=== PATIENT | male | born 1985 | race Caucasian/White ===

== ENCOUNTER 2020-08-20 18:38 | Emergency (ER) | payer OTHER, SELFPAY ==
--- NOTE | ~2020-08-20 | CT_ITS ---
EXAMINATION: CT abdomen pelvis w con DATE: 08/20/2020 20:00 INDICATION: Right lower quadrant abdominal pain. History of Crohn's disease. TECHNIQUE: Computed tomography (CT) of the abdomen and pelvis was performed without intravenous contr ast. Automated exposure control and iterative reconstruction technique were employed. Exam dose: 372 .46 mGy-cm total exam DLP. COMPARISON: 07/11/2018 CT abdomen pelvis FINDINGS: The lung bases are clear of infiltrate or consolidation. Normal heart size. No pericardial or pleural effusion. The liver, gallbladder, bile ducts, spleen, pancreas, pancreatic duct, and adrenal glands are unremar kable. No renal mass lesion or scarring is evident. Prominent right extrarenal pelvis but no hydronephrosis or urinary tract calculus is noted on either side. The urinary bladder is unremarkable. Mild prostate enlargement and mild prostate calcification. Normal caliber of the abdominal aorta. No intraperitoneal or retroperitoneal or pelvic mass lesion or adenopathy. There is prominent mural thickening of the terminal ileum, with proximal distal ileum dilatation up t o 4 cm with fecal sign. There is a 6 cm skip segment with proximal short segment small bowel mural th ickening and immediately proximal to that 4 cm dilatation and small bowel fecal sign. The findings are consistent with active Crohn's disease. The sacroiliac joints appear normal. No sacroiliitis is identified. No suspicious osteolytic or osteoblastic lesions are noted. IMPRESSION: Active Crohn's disease at distal ileum and terminal ileum, with 6 cm intervening skip se gment No abscess is identified. There is minimal free fluid in the right pelvis Reviewed, dictated and finalized at [facility]. Reviewed, dictated and finalized at [facility]. IMPRESSION: Active Crohn's disease at distal ileum and terminal ileum, with 6 cm intervening skip segment No abscess is identified. There is minimal free fluid in the right pelvis
[2020-08-20 18:57] LABS: Basophils Percent Auto 0.3 % (0.2-1.2); Eosinophils Absolute Auto 0.1 K/mm3 (0-0.3); Eosinophils Percent Auto 0.8 % (0-4.4); Hematocrit 41.3 % (42.0-52.0); Hemoglobin 13.6 g/dL (14.0-18.0); Immature Granulocyte Absolute 0.02 K/mm3 (0.00-0.031); Immature Granulocyte Percent A 0.2 % (0-0.5); Lymphocytes Absolute Auto 1.62 K/mm3 (0.9-3.2); Lymphocytes Percent Auto 17.4 % (18.3-44.2); Mean Corpuscular HGB Conc 32.9 g/dl (32-36); Mean Corpuscular Hemoglobin 28.3 pg (26-34); Mean Corpuscular Volume 85.9 fl (80-100); Mean Platelet Volume 11.2 fl (7.4-10.4); Monocytes Absolute Auto 0.4 K/mm3 (0.1-0.6); Monocytes Percent Auto 4.4 % (2.6-8.5); Neutrophils Absolute Auto 7.2 K/mm3 (1.3-6.7); Neutrophils Percent Auto 76.9 % (45.5-73.1); Platelet Count Result 204 k/mm3 (150-375); Red Blood Count 4.81 M/mm3 (4.6-6.20); Red Cell Distribution Width 13.9 % (11.5-14.5); White Blood Count 9.3 K/mm3 (4.5-10.0)
[2020-08-20 18:58] VITALS: BP 106/70; PULSE 80; RESP 12; TEMP 36.7; O2SAT 99
[2020-08-20 19:09] LABS: Alanine Aminotransferase 14 U/L (4-50); Albumin Level 4.5 g/dL (3.5-5.1); Alkaline Phosphatase 68 U/L (38-126); Anion Gap 9 mmol/L (8-16); Aspartate Amino Transferase 24 U/L (17-59); Bilirubin,Total 0.6 mg/dL (0.2-1.3); Blood Urea Nitrogen 12 mg/dL (9-20); Calcium 9.4 mg/dL (8.4-10.2); Carbon Dioxide 27 mmol/L (22-30); Chloride 102 mmol/L (98-107); Estimated CRCL calculation 87 ml/min; Estimated Glomerular Filt Rate > 60; Glucose 98 mg/dL (75-110); Lipase 69 U/L (23-300); Potassium 4.2 mmol/L (3.4-5.0); Sodium 138 mmol/L (137-145)
[2020-08-20 19:15] LABS: Add Urine Microscopic? YES; Appearance Urine Clear (Clear); Bacteria Urine Trace /hpf; Bilirubin Urine Negative (Negative); Blood Urine Negative (Negative); Color Urine Yellow (Yellow); Glucose Urine UA Negative (Negative); Ketones Urine Trace mg/dL (Negative); Leukocyte Esterase Ur Negative LEU/UL (Negative); Mucus Urine Rare /lpf; Nitrate Urine Negative (Negative); Protein Urine 1+ mg/dL (Negative); RBC Urine 0-2 /hpf (0-2); Specific Grav Ur 1.024 (1.001-1.035); Squamous Epithelial Cell Urine Rare /hpf (Few); Urobilinogen Urine Negative mg/dL (<2.0); WBC Urine 0-3 /hpf
[2020-08-20] MEDS: MORPHINE SULFATE (*CRX) 4 MG/ML INJ IV PUSH (19:56)
[2020-08-20] MEDS: ONDANSETRON INJ 4 MG/2 ML VIAL IV PUSH (19:56)
--- NOTE | 2020-08-20 20:02 | ED.GENADULT ---
HPI - General Adult General Chief complaint: Abdominal Pain Stated complaint: right abd pain Time Seen by Provider: 08/20/20 19:06 History of Present Illness HPI narrative: Patient is a 35-year-old male who presents ER with right lower quadrant abdominal pain. Reports she started having some epigastric discomfort yesterday and moved down to the right lower quadrant. He does have history of Crohn's disease with history of Crohn's flares but this is feeling little bit different giving how the pain has moved locations. No diarrhea or bloody bowel movements. No nausea/vomiting/shortness of breath. Did have some sweats earlier in the day. No aggravating or alleviating factors. Related Data Allergies Allergy/AdvReac Type Severity Reaction Status Date / Time No Known Allergies Allergy Unknown Unverified 07/11/18 20:19 Review of Systems Review of Systems: All systems reviewed & are unremarkable except as noted in HPI and below Constitutional: Constitutional: Reports chills, Denies fever(s) and Reports weakness ENT: Denies nasal congestion and Denies sore throat Cardiovascular: Cardiovascular: Denies chest pain, Denies rapid heart rate and Denies radiating jaw, neck or arm pain Respiratory: Respiratory: Denies cough and Denies dyspnea Gastrointestinal: Gastrointestinal: Reports abdominal pain, Denies constipation, Denies diarrhea, Reports nausea and Denies vomiting PMFSH Past Medical History Medical History (Updated 08/20/20 @ 20:58 by Fco Guallpa MD) Crohn's disease Surgical History Surgical History (Updated 08/20/20 @ 20:05 by Fco Guallpa MD) History of colonoscopy Exam Narrative: Exam Narrative: GENERAL: Well-appearing, well-nourished, and in no acute distress. HEAD: Normocephalic, atraumatic. ENT: Mucous membranes moist. CHEST: Clear to auscultation. No respiratory distress. HEART: Regular rate and rhythm. Normal peripheral pulses. ABDOMEN: Soft, mild tenderness right lower quadrant without guarding, nondistended. EXTREMITIES: Normal range of motion. No edema. SKIN: Warm, dry, no rash. NEURO: Alert and oriented x3. PSYCH: Normal mood and affect. Course Course Emergency Course: Discussed case with Dr. Rossi who recommends patient be on a liquid diet for the next 48 hours and to return if he has vomiting. Does not recommend prednisone at this time. Discussed case with patient is verbalized understanding of treatment plan and is in agreement. Discharge home. Vital Signs Vital signs: Vital Signs Temperature 98.1 F 08/20/20 18:58 Pulse Rate 80 08/20/20 18:58 Respiratory Rate 12 08/20/20 18:58 Blood Pressure 106/70 08/20/20 18:58 Pulse Oximetry 99 08/20/20 18:58 Temperature 98.1 F 08/20/20 18:58 Pulse Rate 80 08/20/20 18:58 Respiratory Rate 12 08/20/20 18:58 Blood Pressure 106/70 08/20/20 18:58 Pulse Oximetry 99 08/20/20 18:58 Medical Decision Making Vital Signs Vital Signs: Vital Signs Temperature 98.1 F 08/20/20 18:58 Pulse Rate 80 08/20/20 18:58 Respiratory Rate 12 08/20/20 18:58 Blood Pressure 106/70 08/20/20 18:58 Pulse Oximetry 99 08/20/20 18:58 Temperature 98.1 F 08/20/20 18:58 Pulse Rate 80 08/20/20 18:58 Respiratory Rate 12 08/20/20 18:58 Blood Pressure 106/70 08/20/20 18:58 Pulse Oximetry 99 08/20/20 18:58 Lab Data Result diagrams: 08/20/20 18:52 08/20/20 18:52 Labs: Lab Results 08/20/20 08/20/20 08/20/20 Range/Units 18:52 18:52 19:02 WBC 9.3 (4.5-10.0) K/mm3 RBC 4.81 (4.6-6.20) M/mm3 Hgb 13.6 L (14.0-18.0) g/dL Hct 41.3 L (42.0-52.0) % MCV 85.9 (80-100) fl MCH 28.3 (26-34) pg MCHC 32.9 (32-36) g/dl RDW 13.9 (11.5-14.5) % Plt Count 204 (150-375) k/mm3 MPV 11.2 H (7.4-10.4) fl Immature Gran % (Auto) 0.2 (0-0.5) % Neut % (Auto) 76.9 H (45.5-73.1) % Lymph % (Auto) 17.4 L (18.3-44.2) % [place] %
[2020-08-20 21:08] VITALS: BP 110/72; PULSE 73; RESP 18; O2SAT 99
== END 2020-08-20 21:13 | disposition home or self-care (01) ==
PROVIDERS: Emergency Medicine; Emergency Provider Emergency Medicine; PCP Family Medicine
DX: K50.00 Crohn's disease of small intestine without complications (principal)
CPT/HCPCS: 36415; 74177; 80053; 81001; 83690; 85025; 96374; 96375; 99284; J2270; J2405; Q9967

== ENCOUNTER 2020-09-11 10:15 | Emergency (ER) | payer OTHER, SELFPAY ==
[2020-09-11 10:29] VITALS: BP 111/69; PULSE 75; RESP 14; TEMP 36.8; O2SAT 100
[2020-09-11 11:45] LABS: Basophils Percent Auto 0.1 % (0.2-1.2); Hematocrit 41.9 % (42.0-52.0); Hemoglobin 13.5 g/dL (14.0-18.0); Immature Granulocyte Absolute 0.05 K/mm3 (0.00-0.031); Immature Granulocyte Percent A 0.4 % (0-0.5); Lymphocytes Absolute Auto 0.48 K/mm3 (0.9-3.2); Lymphocytes Percent Auto 3.5 % (18.3-44.2); Mean Corpuscular HGB Conc 32.2 g/dl (32-36); Mean Corpuscular Hemoglobin 28.1 pg (26-34); Mean Corpuscular Volume 87.1 fl (80-100); Mean Platelet Volume 12.2 fl (7.4-10.4); Monocytes Absolute Auto 0.5 K/mm3 (0.1-0.6); Monocytes Percent Auto 3.9 % (2.6-8.5); Neutrophils Absolute Auto 12.8 K/mm3 (1.3-6.7); Neutrophils Percent Auto 92.1 % (45.5-73.1); Platelet Count Result 215 k/mm3 (150-375); Red Blood Count 4.81 M/mm3 (4.6-6.20); Red Cell Distribution Width 14.2 % (11.5-14.5); White Blood Count 13.8 K/mm3 (4.5-10.0)
[2020-09-11 11:58] LABS: Alanine Aminotransferase 17 U/L (4-50); Albumin Level 4.4 g/dL (3.5-5.1); Alkaline Phosphatase 75 U/L (38-126); Anion Gap 9 mmol/L (8-16); Aspartate Amino Transferase 26 U/L (17-59); Bilirubin,Total 0.4 mg/dL (0.2-1.3); Blood Urea Nitrogen 14 mg/dL (9-20); Calcium 8.9 mg/dL (8.4-10.2); Carbon Dioxide 25 mmol/L (22-30); Chloride 103 mmol/L (98-107); Estimated CRCL calculation 107 ml/min; Estimated Glomerular Filt Rate > 60; Glucose 122 mg/dL (75-110); Lipase 61 U/L (23-300); Potassium 4.1 mmol/L (3.4-5.0); Sodium 137 mmol/L (137-145)
[2020-09-11 12:10] VITALS: BP 121/88; PULSE 76; RESP 16; TEMP 36.6; O2SAT 89
--- NOTE | 2020-09-11 12:21 | ED.ABDPAIN ---
HPI - Abdominal Pain General Chief Complaint: Abdominal Pain Stated Complaint: ABD PAIN Time Seen by Provider: 09/11/20 12:01 Source: patient and RN notes reviewed Mode of arrival: ambulatory Limitations: no limitations History of Present Illness HPI narrative: This is a 35 year old male with history of Chrohn's disease who presents for evaluation constipation and lower abdominal pain. He states he woke up at 5 am this morning with lower abdominal cramping and the urge to defecate. He states he was unable to have a bowel movement and he continued to have pain. He tried taking a fleet and he was unable to go after 1 hour so he came to ER. Patient states he had small bowel movement at home. Once he got to ER, he was able to have large bowel movement and his abdominal pain has resolved. He reports he was told to take miralax daily for his issues with constipation but he is not taking. He states miralax makes him feel ill . MD elicited complaint: abdominal pain Pain Consistency: now resolved Quality: cramping Related Data Allergies Allergy/AdvReac Type Severity Reaction Status Date / Time No Known Allergies Allergy Unknown Unverified 07/11/18 20:19 Review of Systems Review of Systems: All systems reviewed & are unremarkable except as noted in HPI and below PMFSH Past Medical History Medical History (Updated 09/11/20 @ 12:32 by Radha Zacarias MD) Crohn's disease Surgical History Surgical History (Updated 08/20/20 @ 20:05 by Fco Guallpa MD) History of colonoscopy Social History Social History (Updated 09/11/20 @ 23:04 by Radha Zacarias MD) Smoking status: Former smoker Exam Const: General: no acute distress and alert Orientation/consciousness: patient oriented x3 Eyes: EOM: EOMs intact bilaterally Resp: Effort & Inspection: normal respiratory effort and no retractions Auscultation: clear to auscultation bilaterally Cardio: Rate: regular rate Rhythm: regular rhythm Heart sounds: no murmurs GI: GI Palp: Yes Soft to palpation, No Tenderness to palpation present (GI) and Yes Guarding due to palpation present (GI) Auscultation: normal bowel sounds Neuro: General: patient oriented x3, moves all extremities and CN's II-XI intact bilaterally Extrem: General: normal to inspection Psych: Mental Status: mental status grossly normal Affect: normal affect Course Reevaluation(s) Reevaluation #1: Patient presented with constipation . His abdominal pain resolved and he has no abdominal tenderness. I reviewed labs that show chronic leukocytosis. He does not appear to need repeat imaging at this time. Date: 09/11/20 Time: 12:28 Consultations Consultation #1: I discussed case with DR. Trinidad and he states patient can take [place] and call office tomorrow. Date: 09/11/20 Time: 12:28 Vital Signs Vital signs: Vital Signs Temperature 98.2 F 09/11/20 10:29 Pulse Rate 75 09/11/20 10:29 Respiratory Rate 14 09/11/20 10:29 Blood Pressure 111/69 09/11/20 10:29 Pulse Oximetry 100 09/11/20 10:29 Temperature 98.4 F 09/11/20 13:15 Pulse Rate 73 09/11/20 13:15 Respiratory Rate 18 09/11/20 13:15 Blood Pressure 116/79 09/11/20 13:15 Pulse Oximetry 100 09/11/20 13:15 MDM - Abdominal Pain Medical Records Attestation: I reviewed the patient's medical records. Lab Data Attestation: I reviewed the patient's lab results. Result diagrams: 09/11/20 11:00 09/11/20 11:00 Labs: Lab Results 09/11/20 09/11/20 09/11/20 Range/Units 11:00 11:00 12:14 WBC 13.8 H (4.5-10.0) K/mm3 RBC 4.81 (4.6-6.20) M/mm3 Hgb 13.5 L (14.0-18.0) g/dL Hct 41.9 L (42.0-52.0) % MCV 87.1 (80-100) fl MCH 28.1 (26-34) pg MCHC 32.2 (32-36) g/dl RDW 14.2 (11.5-14.5) % Plt Count 215 (150-375) k/mm3 MPV 12.2 H (7.4-10.4) fl Immature Gran % (Auto) 0.4 (0-0.5) % Neut % (Auto) 92.1 H (45.5-73.1) %
[2020-09-11 12:22] LABS: Add Urine Microscopic? YES; Appearance Urine Clear (Clear); Bacteria Urine Trace /hpf; Bilirubin Urine Negative (Negative); Blood Urine Negative (Negative); Color Urine Yellow (Yellow); Glucose Urine UA Negative (Negative); Ketones Urine Trace mg/dL (Negative); Leukocyte Esterase Ur Negative LEU/UL (Negative); Mucus Urine Rare /lpf; Nitrate Urine Negative (Negative); Protein Urine Negative (Negative); RBC Urine 0-2 /hpf (0-2); Specific Grav Ur 1.028 (1.001-1.035); Squamous Epithelial Cell Urine Rare /hpf (Few); Urobilinogen Urine Negative mg/dL (<2.0); WBC Urine 0-3 /hpf
--- NOTE | 2020-09-11 13:00 | PC.NURSE ---
Patient is still in rest room at this time.
--- NOTE | 2020-09-11 13:07 | PC.NURSE ---
Patient in bathroom at this time.
[2020-09-11 13:15] VITALS: BP 116/79; PULSE 73; RESP 18; TEMP 36.9; O2SAT 100
== END 2020-09-11 13:15 | disposition home or self-care (01) ==
PROVIDERS: Emergency Medicine; Emergency Provider General Practice; PCP Family Medicine
DX: K50.90 Crohn's disease, unspecified, without complications (principal); K59.00 Constipation, unspecified; Z87.891 Personal history of nicotine dependence
CPT/HCPCS: 36415; 80053; 81001; 83690; 85025; 99283

== ENCOUNTER 2020-09-30 09:07 | Outpatient (CLI) | payer OTHER, SELFPAY ==
--- NOTE | ~2020-09-30 | CT_ITS ---
EXAMINATION: CT abdomen pelvis w con DATE: 09/30/2020 09:39 INDICATION: Crohn's disease presenting with lower abdominal pain and constipation TECHNIQUE: Computed tomography (CT) of the abdomen and pelvis was performed with 100 mL Omnipaque-350 intravenous contrast. Automated exposure control and iterative reconstruction technique were employe d. The dose-length product was 332.88 mGy-cm. COMPARISON: 08/20/2020 FINDINGS: Lung bases are clear. Heart size is normal. No pericardial or pleural effusion. Liver, gallbladder, s pleen, pancreas, bilateral adrenal glands and kidneys are normal. There is prominent edematous wall t hickening in the distalmost 30 cm of the ileum consistent with given history of Crohn's disease. No b owel obstruction. The appendix is not visualized. No pericecal inflammatory change to suggest acute a ppendicitis. No pneumatosis or free intraperitoneal gas. No abscess or free intraperitoneal fluid. P artially decompressed bladder is unremarkable. No pathologically enlarged abdominal or pelvic lymphad enopathy. Mild lumbar dextrocurvature. Bones are otherwise unremarkable. IMPRESSION: 1. Edematous wall thickening along the distalmost 40 cm of the ileum consistent with likely reactive Crohn's flare. Reviewed, dictated and finalized at [facility].
== END 2020-09-30 09:08 | disposition home or self-care (01) ==
LOC: ANHIMG 09:08
PROVIDERS: PCP Family Medicine; Visit Provider Internal Medicine Gastroenterology
DX: K50.818 Crohn's disease of both small and large intestine with other complication (principal)
CPT/HCPCS: 74177; Q9967

== ENCOUNTER 2022-01-17 14:06 | Outpatient (CLI) | payer OTHER, SELFPAY ==
--- NOTE | ~2022-01-17 | XR_ITS ---
XR chest 2V DATE: 01/17/2022 14:24 INDICATION: Long-term drug therapy for Crohn's disease of small and large intestine TECHNIQUE: PA and lateral views COMPARISON: None FINDINGS: Normal heart size. No hilar or mediastinal enlargement. No pulmonary infiltrate or consolid ation, pleural effusion or pulmonary vascular congestion or pneumothorax. IMPRESSION: No active cardiopulmonary disease Reviewed, dictated and finalized at [facility]. IZER
== END 2022-01-17 14:07 | disposition home or self-care (01) ==
PROVIDERS: PCP Family Medicine; Visit Provider Internal Medicine Gastroenterology
DX: K50.818 Crohn's disease of both small and large intestine with other complication (principal); Z79.899 Other long term (current) drug therapy
CPT/HCPCS: 71046

== ENCOUNTER 2022-02-06 10:31 | Outpatient (CLI) | payer OTHER, SELFPAY ==
--- NOTE | ~2022-02-06 | CT_ITS ---
EXAMINATION: CT abdomen pelvis w con DATE: 02/06/2022 10:50 INDICATION: Chronic dull abdominal pain, more severe postprandially. History of Crohn's disease of sm all and large intestine. TECHNIQUE: Computed tomography (CT) of the abdomen and pelvis was performed with 100 CC Omnipaque 350 intravenous contrast. Automated exposure control and iterative reconstruction technique were employe d. Exam dose: 374.80 mGy-cm total exam DLP. COMPARISON: 09/30/2020 CT abdomen pelvis FINDINGS: The lung bases are clear. Normal heart size. No pericardial or pleural effusion. The liver, gallbladder, bile ducts, pancreatic duct, pancreas, spleen, adrenal glands and kidneys are normal. Normal caliber of the abdominal aorta. No intraperitoneal or retroperitoneal or pelvic mass lesion or adenopathy or ascites is noted. Mild prostate enlargement and calcification. There is diffuse thickening of the urinary bladder wall which may be due to underdistention; infection is not excluded. There is thickening of the wall of a segment of small bowel the lateral left mid to upper abdomen. Th ere is a long segment of the distal and terminal ileum with prominent wall thickening, luminal narrow ing and adjacent mild fluid and fat stranding. There are shotty mesenteric lymph nodes, most prominen t in the right lower quadrant. Included skeletal structures including sacroiliac joints are unremarkable. IMPRESSION: Active Crohn's disease with skip segments including jejunum and distal/terminal ileum, w ith prominent thickening of the distal small bowel wall and adjacent inflammation/phlegmon Reviewed, dictated and finalized at [facility]. Reviewed, dictated and finalized at [facility]. [employer] IMPRESSION: Active Crohn's disease with skip segments including jejunum and di stal/terminal ileum, with prominent thickening of the distal small bowel wall a nd adjacent inflammation/phlegmon
== END 2022-02-06 10:32 | disposition home or self-care (01) ==
PROVIDERS: PCP Family Medicine; Visit Provider Internal Medicine Gastroenterology
DX: K50.818 Crohn's disease of both small and large intestine with other complication (principal)
CPT/HCPCS: 74177; Q9967

== ENCOUNTER 2022-05-06 00:15 | Inpatient (IN) | payer OTHER, SELFPAY ==
[2022-05-06] VITALS (16 sets, daily range): BP systolic 101–138; BP diastolic 59–86; PULSE 75–110; RESP 12–26; TEMP 36.2–37.3; O2SAT 96–100; BMI 29.0
--- NOTE | ~2022-05-06 | CT_ITS ---
EXAMINATION: CT abdomen pelvis w con DATE: 05/06/2022 03:49 INDICATION: Low and mid abdominal pain. Nausea. Constipation. TECHNIQUE: Computed tomography (CT) of the abdomen and pelvis was performed with 100 mL Omnipaque 350 intravenous contrast. Automated exposure control and iterative reconstruction technique were employe d. The dose-length product was 563.96 mGy-cm. COMPARISON: CT abdomen and pelvis 02/06/2022 FINDINGS: The visualized portions of the lung bases demonstrate mild atelectasis. No pleural effusion . The heart size is normal. No pericardial effusion. The liver, gallbladder, spleen, pancreas, adrena l glands, and kidneys are normal. There are no dilated loops of bowel. The appendix is not visualized . There is wall thickening of the terminal ileum, cecum, and adjacent sigmoid colon. There are fistul as between the terminal ileum, cecum, and sigmoid colon. There is fat stranding around these areas. T here is mild ileocolic lymphadenopathy, likely reactive. There is no free intraperitoneal fluid. Ther e is mild thoracic spondylosis. IMPRESSION: 1. Wall thickening and inflammation of cecum, terminal ileum, and sigmoid colon again seen with chron ic fistulas between these areas, consistent with Crohn's disease. 2. Mild ileocolic lymphadenopathy, likely reactive. Reviewed, dictated and finalized at location A. TECHNICIAN IMPRESSION: 1. Wall thickening and inflammation of cecum, terminal ileum, and sigmoid colon again seen with chronic fistulas between these areas, consistent with Crohn's disease. 2. Mild ileocolic lymphadenopathy, likely reactive.
[2022-05-06] MEDS: SODIUM CHLORIDE 0.9% IV 1,000 ML 999 ML IV CONT (02:35)
[2022-05-06] MEDS: MORPHINE SULFATE (*CRX) 4 MG/ML INJ IV PUSH ×4 (02:35→20:04)
[2022-05-06] MEDS: ONDANSETRON INJ 4 MG/2 ML VIAL IV PUSH ×4 (02:35→20:07)
[2022-05-06 02:45] LABS: Basophils Percent Auto 0.1 % (0.2-1.2); Eosinophils Percent Auto 0.1 % (0-4.4); Hematocrit 39.1 % (42.0-52.0); Hemoglobin 12.7 g/dL (14.0-18.0); Immature Granulocyte Absolute 0.06 K/mm3 (0.00-0.031); Immature Granulocyte Percent A 0.4 % (0-0.5); Lymphocytes Absolute Auto 0.97 K/mm3 (0.9-3.2); Lymphocytes Percent Auto 5.9 % (18.3-44.2); Mean Corpuscular HGB Conc 32.5 g/dl (32-36); Mean Corpuscular Hemoglobin 27.1 pg (26-34); Mean Corpuscular Volume 83.5 fl (80-100); Mean Platelet Volume 11.1 fl (7.4-10.4); Monocytes Absolute Auto 0.7 K/mm3 (0.1-0.6); Monocytes Percent Auto 4.4 % (2.6-8.5); Neutrophils Absolute Auto 14.7 K/mm3 (1.3-6.7); Neutrophils Percent Auto 89.1 % (45.5-73.1); Platelet Count Result 252 k/mm3 (150-375); Red Blood Count 4.68 M/mm3 (4.6-6.20); Red Cell Distribution Width 13.8 % (11.5-14.5); White Blood Count 16.5 K/mm3 (4.5-10.0)
[2022-05-06 02:55] LABS: Alanine Aminotransferase 15 U/L (6-50); Albumin Level 4.2 g/dL (3.5-5.1); Alkaline Phosphatase 58 U/L (38-126); Anion Gap 8 mmol/L (8-16); Aspartate Amino Transferase 16 U/L (17-59); Bilirubin,Total 0.5 mg/dL (0.2-1.3); Blood Urea Nitrogen 9 mg/dL (9-20); Calcium 8.6 mg/dL (8.4-10.2); Carbon Dioxide 28 mmol/L (22-30); Chloride 97 mmol/L (98-107); Estimated CRCL calculation 134 ml/min; Estimated Glomerular Filt Rate > 60; Glucose 119 mg/dL (65-110); Lipase 52 U/L (23-300); Potassium 3.1 mmol/L (3.4-5.0); Sodium 133 mmol/L (137-145)
--- NOTE | 2022-05-06 02:57 | ED.GENADULT ---
HPI - General Adult General Chief complaint: Abdominal Pain Stated complaint: abd pain Time Seen by Provider: 05/06/22 01:47 History of Present Illness HPI narrative: Patient 36-year-old gentleman who presents the emergency department with chief complaint of abdominal pain. Patient reports that he has history of Crohn's disease and is currently undergoing infusions and sees a GI doctor at [place] Dr. Trinidad. The patient reports that for some time he has been having abdominal discomfort and reports that over the last several days it is gotten worse. Patient reports he has not had any diarrhea in fact has had constipation the patient reports no significant vomiting or denies fever. Patient reports no prior intra-abdominal surgeries Related Data Allergies Allergy/AdvReac Type Severity Reaction Status Date / Time No Known Allergies Allergy Unknown Verified 05/06/22 00:15 Review of Systems Review of Systems: A 10 system review of systems was completed on the patient and is negative except for what is stated in the HPI. Nursing and ancillary documentation was reviewed. [facility] Past Medical History Medical History Crohn's disease Surgical History Surgical History History of colonoscopy Social History Social History Smoking status: Former smoker Exam Narrative: GENERAL: Well-appearing, well-nourished, and in no acute distress. HEAD: Normocephalic, atraumatic. EYES: PERRLA and EOMI. ENT: Nares clear, no rhinorrhea or epistaxis. Mucous membranes moist. NECK: Supple. CHEST: Clear to auscultation. No respiratory distress. HEART: Regular rate and rhythm. No murmur heard. Normal peripheral pulses. ABDOMEN: Soft, diffuse tenderness to palpation, nondistended, normal active bowel sounds. EXTREMITIES: Normal range of motion. No edema. SKIN: Warm, dry, no rash. NEURO: No focal deficits. Alert and oriented x3. PSYCH: Normal mood and affect. Course Vital Signs Vital signs: Vital Signs Temperature 36.2 C L 05/06/22 00:27 Pulse Rate 93 05/06/22 00:27 Respiratory Rate 20 05/06/22 00:27 Blood Pressure 116/75 05/06/22 00:27 Pulse Oximetry 100 05/06/22 00:27 Oxygen Delivery Room Air 05/06/22 00:27 Temperature 36.2 C L 05/06/22 00:27 Pulse Rate 87 05/06/22 06:00 Respiratory Rate 17 05/06/22 06:00 Blood Pressure 103/66 05/06/22 06:00 Pulse Oximetry 100 05/06/22 06:00 Oxygen Delivery Room Air 05/06/22 00:27 Medical Decision Making MDM Narrative Medical decision making narrative: Differential diagnosis includes bowel obstruction, Crohn's exacerbation, colitis, ileus, appendicitis, intra-abdominal abscess. Laboratory studies have been ordered CT scan has been ordered the patient received IV fluids and pain control and antiemetics. Laboratory studies showed a white blood cell count of 16.5 lactic acid was 1.0 urinalysis showed 4+ ketones Patient received IV fluids antiemetics and pain control. CT scan of the abdomen pelvis showed evidence of edema in the greater wall of the terminal ileum consistent with Crohn's and a 1.8 cm triangular fluid collection adjacent to the wall of the distal ileum concerning for small abscess that is too small for drainage. Initial discussion with the hospitalist recommended possible transfer to allow for continuation of care. The case was discussed with the patient's primary GI doctor who recommended IV antibiotics at our facility and standard therapy. Case was discussed further with the hospitalist who excepted the patient. Vital Signs Vital Signs: Vital Signs Temperature 36.2 C L 05/06/22 00:27 Pulse Rate 93 05/06/22 00:27 Respiratory Rate 20 05/06/22 00:27 Blood Pressure 116/75 05/06/22 00:27 Pulse Oximetry 100 05/06/22 00:27 Oxygen Delive
[2022-05-06 04:15] LABS: Appearance Urine Clear (Clear); Bilirubin Urine 1+ (Negative); Blood Urine Negative (Negative); Color Urine Yellow (Yellow); Glucose Urine UA Negative (Negative); Ketones Urine 4+ mg/dL (Negative); Leukocyte Esterase Ur Negative LEU/UL (Negative); Nitrate Urine Negative (Negative); Protein Urine Negative (Negative); Urobilinogen Urine 0.2 mg/dL (<2.0); pH Urine 5.5 (5.0-9.0)
[2022-05-06 04:18] LABS: Bacteria Urine Trace /hpf; Mucus Urine Rare /lpf; RBC Urine 0-2 /hpf (0-2); WBC Urine 0-3 /hpf
[2022-05-06 04:28] LABS: Add Urine Microscopic? YES
[2022-05-06] MEDS: SODIUM CHLORIDE 0.9% IV 1,000 ML 125 ML IV CONT ×2 (06:06→20:04)
--- NOTE | 2022-05-06 08:20 | PC.NURSE ---
This patient, Varghese Reinoso III, was admitted to [facility] Surg Room 310-01. Patient/family oriented to hospital policies and general routines including ID bracelet, bed and alarms, visiting hours, pain management, procedures, bathroom and other care routines, personal items, smoking policy, room service/diet, and visiting hours. Information on how to activate the Rapid Response Team has been discussed. Patient/Family are encouraged to report perceived risks to care and to ask questions if they do not understand what they are told or what they should do.
--- NOTE | 2022-05-06 09:05 | WPDGICN ---
Assessment and Plan Assessment and plan (1) Exacerbation of Crohn's disease: Code(s): K50.90 - Crohn's disease, unspecified, without complications Status: Acute Assessment and Plan: although he felt better after his 1st injection with Stelara, he began having symptoms again last week just couple days prior to his 2nd dose and those symptoms have worsened over the past [address] scan in February did show areas of Crohn's disease with narrowing in the jejunum as well as terminal ileum. Now there is an abscess as well. Recurrent CT reading is: 1. Wall thickening and inflammation of cecum, terminal ileum, and sigmoid colon again seen with chronic fistulas between these areas, consistent with Crohn's disease. 2. Mild ileocolic lymphadenopathy, likely reactive. I told that this is not indicated failure of therapy but that he was probably starting to develop an abscess before this based on the phlegmon that was noted in February. Because he has fistulizing Crohn's disease, his current therapy we is appropriate. He will need to continue to follow-up closely with his filter press tender. (2) Intra-abdominal abscess: Code(s): K65.1 - Peritoneal abscess Status: Acute Assessment and Plan: He has been started on piperacillin. I told that he would probably go home on antibiotics. I mentioned metronidazole and he recalls having been on that at some point in the past. Plan Start clear liquid diet antibiotics for Crohn's abscess tract calprotectin level as a 'baseline' and as a parameter for his filter press tender to follow. GI Consult Note Consult date/time: 05/06/22 09:05 HPI: Varghese Reinoso III is a 36 year old male with 15 year history of Crohn's disease. He came to the emergency room yesterday evening because of increasing abdominal pain. He was starting to feel uncomfortable a little over week ago, 2 or 3 days before his 2nd treatment with Stelara. He had been in the past on other medications including Humira. The Humira had worked for him when he was in [place]. He moved up here and when he restarted Humira,it did not seem to be helping. He did feel significantly better after his 1st dose of Stelara about 2 months ago. After having his 2nd treatment 1 week ago the pain that he had started to experience actually get worse to the point that is continuous now for the past 3 days. It makes him not want to eat. He is not vomiting. He has not had a fever but does not feel like eating because seems to make his symptoms worse when he does eat. He has lost about 5 lb in the last 2 months. He has not had significant abdominal distention. He has not had a fever. He does have loose stools. Usually has 1st bowel movement is formed but followed by loose stool. A CT scan was done in February prior to starting this medication and it showed active Crohn's disease with skip segments in the jejunum and terminal ileum with thickening of the distal small bowel and adjacent inflammation/ phlegmon . Last night CT scan shows actually a small abscess in that area. He has been started on piperacillin. Review of Systems Review of Systems: All systems reviewed & are unremarkable except as noted in HPI and below PMFSH Past Medical History Medical History Crohn's disease Surgical History Surgical History History of colonoscopy Family History Family History Unknown Hypertension Grandparent Hx of CABG Social History Social History Years smoked: 11 Smoking status: Former smoker Alcohol intake: never Substance use: never Lack of Transportation: No Lack of Food: Never True Current Housing: I Have Housing Concerned About Future Housing: No Difficulty Paying Gas/Electric
--- NOTE | 2022-05-06 10:30 | PM.IMHP ---
H&P: HPI History of Present Illness Date/Time: 05/06/22 1030 Chief Complaint: Severe abdominal pain Narrative: Patient is a 36-year-old male with past medical history Crohn's disease who presented to the ED with complaints of abdominal pain. Patient stated that he had severe abdominal pain for last 3 days in which he rated a 10/10. He stated that his pain started the pelvic area and has been radiating up to the epigastric area. He has been experiencing some nausea and constipation. He also has been getting treatment with Stelara and his last dose was last week. He denies any chest pain, shortness a breath, vomiting, weakness, lightheadedness, dizziness, sweats, fevers, chills, fatigue. He denies any treatment at home. He was stating that he sometimes has a hard time starting a stream however when he does it fully empties. GI has been consulted. WBC slightly elevated at 16.5. Patient does see Dr. Trinidad outpatient. CT of the abdomen and pelvis does show wall thickening and inflammation of the cecum, terminal ileum, and sigmoid colon with skip lesions. Currently patient is stable. He is having a little bit of decreased appetite due to the pain and nausea. He did state that the pain medicines are helping him. Patient has also been started on Zosyn. Patient is being admitted to the hospitalist services and patient will require to greater than 2 midnights for full workup in recovery. Review of Systems Review of Systems: All systems reviewed & are unremarkable except as noted in HPI and below PMFSH Past Medical History Medical History Crohn's disease Surgical History Surgical History History of colonoscopy Family History Family History Unknown Hypertension Grandparent Hx of CABG Mother Hypertension Father Hypertension Social History Social History (Updated 05/06/22 @ 13:21 by CHANDRA Multani) Social History: Patient is currently unemployed in the with his mom and dad. Patient does have 2 kids and they do have a dog. Patient currently lacks is dad Varghese to be his surrogate. Patient wishes to be a full code at this time Smoking packs per day: 1 Smoking cigarettes per day: 20.0 Years smoked: 8 Smoking pack-years: 8.00 Smoking status: Former smoker Additional smoking assessment comments: Quit about 3 years ago Alcohol intake: never Substance use: never Lack of Transportation: No Lack of Food: Never True Current Housing: I Have Housing Concerned About Future Housing: No Difficulty Paying Gas/Electric Bills: No Difficulty Paying for Meds: No Currently Unemployed: No Education: High School Diploma/GED Difficulty w/ Childcare or Family Care: No Living arrangements: with family Additional living arrangements comments: Mother and Father Occupation/Education: unemployed Gender identity (if verbalized by the patient): Male Sexual Orientation (if Verbalized by the Patient): Straight or Heterosexual Spiritual care concerns: No Agree to blood products: Yes Meds Home Medications and Allergies Home Medications Medication Instructions Recorded Confirmed Type ustekinumab 45 mg/0.5 mL See Rx Instructions .Route .COMPLEX 05/06/22 05/06/22 History subcutaneous solution (Stelara) Allergies Allergy/AdvReac Type Severity Reaction Status Date / Time No Known Allergies Allergy Unknown Verified 05/06/22 00:15 Vital Signs Vital Signs - 24 hr 05/06/22 00:27 05/06/22 01:36 05/06/22 02:46 Temperature 97.1 F L Pulse Rate 93 80 91 Respiratory Rate 20 17 23 H Blood Pressure 116/75 123/82 106/69 Pulse Oximetry 100 100 96 Oxygen Delivery Room Air 05/06/22 05:45 05/06/22 05:43 05/06/22 03:30 Temperature Pulse Rate 91 90 79 Respiratory Rate 12 14 16 Blood Pressure 113/69
[2022-05-06] MEDS: POTASSIUM CHLORIDE INJ 40 MEQ in SODIUM CHLORIDE 0.9% IV 500 ML 130 MEQ IVPB (13:44)
[2022-05-06] MEDS: HYDROcodone/acetaminophen (*CRX) 5-325 MG TABLET 1 TAB PO (20:04)
[2022-05-07] MEDS: SODIUM CHLORIDE 0.9% IV 1,000 ML 125 ML IV CONT ×3 (03:41→23:56)
[2022-05-07] MEDS: HYDROcodone/acetaminophen (*CRX) 5-325 MG TABLET 1 TAB PO (03:41)
[2022-05-07 05:21] VITALS: BP 99/61; PULSE 86; RESP 20; TEMP 36.6; O2SAT 100
[2022-05-07 07:18] LABS: Basophils Percent Auto 0.2 % (0.2-1.2); Eosinophils Absolute Auto 0.1 K/mm3 (0-0.3); Eosinophils Percent Auto 0.5 % (0-4.4); Hematocrit 37.1 % (42.0-52.0); Hemoglobin 11.7 g/dL (14.0-18.0); Immature Granulocyte Absolute 0.02 K/mm3 (0.00-0.031); Immature Granulocyte Percent A 0.2 % (0-0.5); Lymphocytes Absolute Auto 1.06 K/mm3 (0.9-3.2); Mean Corpuscular HGB Conc 31.5 g/dl (32-36); Mean Corpuscular Hemoglobin 26.6 pg (26-34); Mean Corpuscular Volume 84.3 fl (80-100); Mean Platelet Volume 11.2 fl (7.4-10.4); Monocytes Absolute Auto 0.9 K/mm3 (0.1-0.6); Monocytes Percent Auto 8.4 % (2.6-8.5); Neutrophils Absolute Auto 8.6 K/mm3 (1.3-6.7); Neutrophils Percent Auto 80.7 % (45.5-73.1); Platelet Count Result 230 k/mm3 (150-375); Red Cell Distribution Width 13.8 % (11.5-14.5); White Blood Count 10.6 K/mm3 (4.5-10.0)
[2022-05-07 07:40] LABS: Alanine Aminotransferase 16 U/L (6-50); Albumin Level 3.3 g/dL (3.5-5.1); Alkaline Phosphatase 47 U/L (38-126); Anion Gap 5 mmol/L (8-16); Aspartate Amino Transferase 17 U/L (17-59); Bilirubin,Total 0.8 mg/dL (0.2-1.3); Blood Urea Nitrogen 3 mg/dL (9-20); Calcium 7.8 mg/dL (8.4-10.2); Carbon Dioxide 28 mmol/L (22-30); Chloride 105 mmol/L (98-107); Estimated CRCL calculation 106 ml/min; Estimated Glomerular Filt Rate > 60; Glucose 102 mg/dL (65-110); Magnesium 1.8 mg/dL (1.6-2.3); Potassium 3.9 mmol/L (3.4-5.0); Sodium 138 mmol/L (137-145)
[2022-05-07] MEDS: polyethylene glycoL 3350 17 GM POWD.PACK PO (08:02)
[2022-05-07] MEDS: methylPREDNISolone SOD SUCC 40 MG VIAL IV PUSH ×4 (08:02→23:56)
[2022-05-07 14:00] VITALS: BP 102/69; PULSE 57; RESP 14; TEMP 36.2; O2SAT 95
--- NOTE | 2022-05-07 14:54 | WPDGIPROGNO ---
Progress Note: A&P Assessment and Plan (1) Exacerbation of Crohn's disease: Code(s): K50.90 - Crohn's disease, unspecified, without complications Status: Acute Assessment and Plan: although he felt better after his 1st injection with Stelara, he began having symptoms again last week just couple days prior to his 2nd dose and those symptoms have worsened over the past [address] scan in February did show areas of Crohn's disease with narrowing in the jejunum as well as terminal ileum. Now there is an abscess as well. Recurrent CT reading is: 1. Wall thickening and inflammation of cecum, terminal ileum, and sigmoid colon again seen with chronic fistulas between these areas, consistent with Crohn's disease. 2. Mild ileocolic lymphadenopathy, likely reactive. I told that this is not indicated failure of therapy but that he was probably starting to develop an abscess before this based on the phlegmon that was noted in February. Because he has fistulizing Crohn's disease, his current therapy we is appropriate. He will need to continue to follow-up closely with his electric hoist operator. I am going to start him on intravenous steroids to help reduce inflammation. (2) Intra-abdominal abscess: Code(s): K65.1 - Peritoneal abscess Status: Acute Assessment and Plan: He has been started on piperacillin. I told that he would probably go home on antibiotics. I mentioned metronidazole and he recalls having been on that at some point in the past. I explained that he will PN intravenous antibiotics while he is here and then probably will go home on oral antibiotics for some period of time. (3) Abdominal pain: Code(s): R10.9 - Unspecified abdominal pain Status: Acute Assessment and Plan: he had a little more pain when he tried taking clear liquids. He states that he is willing to try some full liquids although he does not do well with lactulose. He states he is not particularly hungry. He is not taking morphine because it seems to upset his stomach but he is trying to get by with oral medication, hydrocodone Plan Start clear liquid diet; try advancing to full liquids antibiotics for Crohn's abscess tract calprotectin level as a 'baseline' and as a parameter for his electric hoist operator to follow. He has not had a stool since he arrived in feels that he might be getting constipated . I told I will give him some . MiraLax Subjective Date/time seen: 05/07/22 14:54 he does not feel any better. He states that he is not hungry in fact he thinks his abdominal pain got worse when he took some clear liquids. He also gets nauseated with narcotics therefore has given up on morphine and would rather try hydrocodone for his pain. he feels constipated. He has not had a bowel movement since he got here, although he really has not had anything to eat. He states that at home he often feels constipated. When he has a bowel movement will begin As a solid or hard stool and is followed by a great deal of liquid stool. Exam Const: General: no acute distress, alert and awake Nutritional Appearance: well nourished Cardio: Rate: regular rate Rhythm: regular rhythm GI: Inspection: normal to inspection GI Palp: Yes Tenderness to palpation present (GI) (Left and right lower quadrants), Yes No hepatosplenomegaly present, No Palpable mass present and No Ascites present Auscultation: normal bowel sounds Skin: General skin exam: normal color and no rashes or lesions noted Objective Data Vital Signs Vital Signs: Vital Signs - 24 hr 05/06/22 21:10 05/06/22 20:00 05/07/22 05:21 Temperature 36.9 C 36.6 C Pulse Rate 75 86 Respiratory Rate 20 20 Blood Pressure 106/62 99/61 L Pulse Oximetry 98 100 Oxygen Delivery Room Air Intake/Output Intake/Output: Intake & Output 05/04/22 05/05/22 05/06/22 05/07/22 23:59 23:59 23:59 23:59 Intake Total 3110 2626 Output Total 679 200
--- NOTE | 2022-05-07 16:34 | PM.IMPN ---
Progress Note: A&P Assessment and Plan (1) Exacerbation of Crohn's disease: Code(s): K50.90 - Crohn's disease, unspecified, without complications Status: Acute Assessment and Plan: patient presented with worsened abdominal pain ongoing for about 1 week. patient had recently been started on Stelara and symptom onset occurred 2-3 days before he was due for his 2nd treatment CT of the abdomen/ pelvis showed wall thickening and inflammation of the cecum, terminal ileum, and sigmoid colon with chronic fistulas between these areas consistent with Crohn's disease appreciate gastroenterology consultation continue with IV steroids full liquid diet will decrease IV fluids as patient has been appropriately hydrated supportive care. Analgesics and antiemetics available as needed (2) Intra-abdominal abscess: Code(s): K65.1 - Peritoneal abscess Status: Acute Assessment and Plan: chronic fistulas noted on CT with fat stranding continue IV Zosyn plan for discharge with p.o. antibiotics continue to monitor (3) Hypokalemia: Code(s): E87.6 - Hypokalemia Status: Acute Assessment and Plan: potassium is 3.9 today continue to monitor labs Subjective Date/time seen: 05/07/22 16:34 Interval history: date of service: 05/07/2022 Varghese Colin is a 36-year-old male with a history of Crohn's disease who is seen in follow-up for Crohn's flare. Patient reports he is doing better today. He rates his abdominal pain is 2/10. He had a bowel movement yesterday but feels somewhat constipated today, complaining of bloating and gassiness. He is tolerating clear liquid diet. He has no episodes of nausea or vomiting. Ambulating without difficulty, no dizziness, or lightheadedness. Denies shortness of breath, cough, chest pain. Review of Systems Review of Systems: All systems reviewed & are unremarkable except as noted in HPI and below Exam Narrative: General: thin, well-appearing 36-year-old male, sitting up in bed, comfortable, NARD Neuro: awake, alert and oriented x4, speech clear, no focal neuro deficits noted HEENMT: normocephalic, atraumatic, EOMI, sclerae anicteric, moist oral mucosa Respiratory: clear to auscultation bilaterally, nonlabored breathing Cardio: regular rate, regular rhythm with S1-S2 Abdomen: nondistended, normoactive bowel sounds, soft, slightly tender to palpation periumbilical region Extremities: no edema, erythema, or tenderness to palpation, DP pulses 2+ bilaterally Skin: no rashes or lesions, warm and dry Psych: appropriate mood and affect, judgment and insight intact Objective Data Vital Signs Vital Signs: Vital Signs - 24 hr 05/06/22 21:10 05/06/22 20:00 05/07/22 05:21 Temperature 98.5 F 97.9 F Pulse Rate 75 86 Respiratory Rate 20 20 Blood Pressure 106/62 99/61 L Pulse Oximetry 98 100 Oxygen Delivery Room Air 05/07/22 14:00 Temperature 97.2 F L Pulse Rate 57 L Respiratory Rate 14 Blood Pressure 102/69 Pulse Oximetry 95 Oxygen Delivery Intake/Output Intake/Output: Intake & Output 05/04/22 05/05/22 05/06/22 05/07/22 23:59 23:59 23:59 23:59 Intake Total 3110 2626 Output Total 675 200 Balance 2435 2426 Meds/Results Medications: Active Medications Generic Name Dose Route Start Last Admin Trade Name Freq PRN Reason Stop Dose Admin Hydrocodone Bitart/Acetaminophen 1 tab 05/06/22 13:25 05/07/22 03:41 Hydrocodone/Acetaminophen (*Crx) 5-325 Mg Tablet PO 1 tab Q4H PRN Administration Pain Rated 4-6 Piperacillin/Tazobactam/Dextrose 3.375 gm in 50 mls @ 100 mls/hr 05/06/22 12:00 05/07/22 11:35 Zosyn 3.375 Gm/D5w 50ml Pm IVPB Infused Q6H SONI Infusion Sodium Chloride 1,000 mls @ 125 mls/hr 05/06/22 05:55 05/07/22 14:10 Normal Saline Iv IV CONT 125 mls/hr .Q8H SONI Administration Methylprednisolone Sodium Succinate 40 mg 05/07/22 07:30 03
[2022-05-07 20:00] VITALS: PULSE 57; RESP 14; O2SAT 95
[2022-05-07 22:35] VITALS: BP 118/86; PULSE 59; RESP 18; TEMP 36.1; O2SAT 96
[2022-05-08 06:00] VITALS: BP 115/78; PULSE 58; RESP 20; TEMP 36.3; O2SAT 98
[2022-05-08] MEDS: methylPREDNISolone SOD SUCC 40 MG VIAL IV PUSH ×3 (06:13→17:03)
[2022-05-08 06:15] LABS: Anion Gap 5 mmol/L (8-16); Blood Urea Nitrogen 6 mg/dL (9-20); Calcium 8.6 mg/dL (8.4-10.2); Carbon Dioxide 28 mmol/L (22-30); Chloride 105 mmol/L (98-107); Estimated CRCL calculation 138 ml/min; Estimated Glomerular Filt Rate > 60; Glucose 143 mg/dL (65-110); Potassium 4.1 mmol/L (3.4-5.0); Sodium 138 mmol/L (137-145)
[2022-05-08 06:16] LABS: Hematocrit 37.2 % (42.0-52.0); Mean Corpuscular HGB Conc 32.3 g/dl (32-36); Mean Corpuscular Hemoglobin 27.2 pg (26-34); Mean Corpuscular Volume 84.4 fl (80-100); Mean Platelet Volume 11.6 fl (7.4-10.4); Platelet Count Result 247 k/mm3 (150-375); Red Blood Count 4.41 M/mm3 (4.6-6.20); Red Cell Distribution Width 13.6 % (11.5-14.5); White Blood Count 10.2 K/mm3 (4.5-10.0)
--- NOTE | 2022-05-08 07:11 | WPDGIPROGNO ---
Progress Note: A&P Assessment and Plan (1) Exacerbation of Crohn's disease: Code(s): K50.90 - Crohn's disease, unspecified, without complications Status: Acute Assessment and Plan: although he felt better after his 1st injection with Stelara, he began having symptoms again last week just couple days prior to his 2nd dose and those symptoms have worsened over the past [address] scan in February did show areas of Crohn's disease with narrowing in the jejunum as well as terminal ileum. Now there is an abscess as well. Recurrent CT reading is: 1. Wall thickening and inflammation of cecum, terminal ileum, and sigmoid colon again seen with chronic fistulas between these areas, consistent with Crohn's disease. 2. Mild ileocolic lymphadenopathy, likely reactive. I told that this is not indicated failure of therapy but that he was probably starting to develop an abscess before this based on the phlegmon that was noted in February. Because he has fistulizing Crohn's disease, his current therapy we is appropriate. He will need to continue to follow-up closely with his lead producer. I am going to start him on intravenous steroids to help reduce inflammation. 05/08/2022 feels somewhat better today. He unfortunately only got clear liquids yesterday and therefore we are not sure how he will tolerate regular food. I will remind dietary that he is supposed to have full liquids. (2) Intra-abdominal abscess: Code(s): K65.1 - Peritoneal abscess Status: Acute Assessment and Plan: He has been started on piperacillin. I told that he would probably go home on antibiotics. I mentioned metronidazole and he recalls having been on that at some point in the past. I explained that he will PN intravenous antibiotics while he is here and then probably will go home on oral antibiotics for some period of time. White blood count has come down 10,200. calprotectin level has not yet been obtained. (3) Abdominal pain: Code(s): R10.9 - Unspecified abdominal pain Status: Acute Assessment and Plan: he had a little more pain when he tried taking clear liquids. He states that he is willing to try some full liquids although he does not do well with lactulose. He states he is not particularly hungry. He is not taking morphine because it seems to upset his stomach but he is trying to get by with oral medication, hydrocodone 05/08/2022 pain has improved. Plan Start clear liquid diet; try advancing to full liquids antibiotics for Crohn's abscess tract calprotectin level as a 'baseline' and as a parameter for his lead producer to follow. He has not had a stool since he arrived in feels that he might be getting constipated . I told I will give him some . MiraLax Will give him more MiraLax today. Hopefully we can advance his diet later today. Home when he is able to eat without pain or obstructive symptoms. Subjective Date/time seen: 05/08/22 07:11 he is feeling somewhat better. He states he only was offered Jell-O and broth yesterday, despite the fact that we place him on a full liquid diet early yesterday morning. I told that I will remind dietary about that. He states his pain is decreased. He unfortunately has not yet had a bowel movement and is feeling constipated. He did get 1 dose of MiraLax yesterday. Exam Const: General: no acute distress, alert and awake Nutritional Appearance: well nourished Cardio: Rate: regular rate Rhythm: regular rhythm GI: Inspection: normal to inspection GI Palp: Yes Tenderness to palpation present (GI) (Left and right lower quadrants), Yes No hepatosplenomegaly present, No Palpable mass present and No Ascites present Auscultation: normal bowel sounds Skin: General skin exam: normal color and no rashes or lesions noted Objective Data Vital Signs Vital Signs: Vital Signs - 24 hr 05/07/22 14:00 05/07/22 20:00 05/07/22 22:35 Temper
[2022-05-08 07:32] LABS: CRP 6.9 mg/dL (<1.0)
[2022-05-08] MEDS: polyethylene glycoL 3350 17 GM POWD.PACK PO (08:58)
[2022-05-08] MEDS: polyethylene glycoL 3350 238 GM BOTTLE 119 GM PO (08:59)
[2022-05-08 14:00] VITALS: BP 108/68; PULSE 65; RESP 18; TEMP 35.9; O2SAT 98
--- NOTE | 2022-05-08 16:47 | PM.IMPN ---
Progress Note: A&P Assessment and Plan (1) Exacerbation of Crohn's disease: Code(s): K50.90 - Crohn's disease, unspecified, without complications Status: Acute Assessment and Plan: patient presented with worsened abdominal pain ongoing for about 1 week. patient had recently been started on Stelara and symptom onset occurred 2-3 days before he was due for his 2nd treatment CT of the abdomen/ pelvis showed wall thickening and inflammation of the cecum, terminal ileum, and sigmoid colon with chronic fistulas between these areas consistent with Crohn's disease appreciate gastroenterology consultation continue with IV steroids during admission tolerating full liquid diet. Advance to bland diet for dinner hopeful discharge tomorrow if continued improvement IV fluids discontinued on 05/07/2022 is patient is tolerating p.o. intake supportive care. Analgesics and antiemetics available as needed (2) Intra-abdominal abscess: Code(s): K65.1 - Peritoneal abscess Status: Acute Assessment and Plan: chronic fistulas noted on CT with fat stranding continue IV Zosyn plan for discharge with p.o. antibiotics. will plan Cipro and Flagyl for 10 day course per GI recommendations continue to monitor (3) Hypokalemia: Code(s): E87.6 - Hypokalemia Status: Acute Assessment and Plan: resolved continue to monitor labs Subjective Date/time seen: 05/08/22 16:47 Interval history: date of service: 05/08/2022 Varghese Colin is a 36-year-old male with a history of Crohn's disease who is seen in follow-up for Crohn's flare. his pain continues to improve. He is tolerating a full liquid diet. Denies nausea or vomiting. He did have a bowel movement today after dose of MiraLax. Denies shortness breath, cough, chest pain, dizziness, lightheadedness. States he has been feeling much better after receiving steroids Review of Systems Review of Systems: All systems reviewed & are unremarkable except as noted in HPI and below Exam Narrative: General: thin, well-appearing 36-year-old male, sitting up in bed, comfortable, NARD Neuro: awake, alert and oriented x4, speech clear, no focal neuro deficits noted HEENMT: normocephalic, atraumatic, EOMI, sclerae anicteric, moist oral mucosa Respiratory: clear to auscultation bilaterally, nonlabored breathing Cardio: regular rate, regular rhythm with S1-S2 Abdomen: nondistended, normoactive bowel sounds, soft, slightly tender to palpation periumbilical region Extremities: no edema, erythema, or tenderness to palpation, DP pulses 2+ bilaterally Skin: no rashes or lesions, warm and dry Psych: appropriate mood and affect, judgment and insight intact Objective Data Vital Signs Vital Signs: Vital Signs - 24 hr 05/07/22 20:00 05/07/22 22:35 05/08/22 06:00 Temperature 97.0 F L 97.3 F L Pulse Rate 57 L 59 L 58 L Respiratory Rate 14 18 20 Blood Pressure 118/86 115/78 Pulse Oximetry 95 96 98 Oxygen Delivery Room Air 05/08/22 14:00 Temperature 96.6 F L Pulse Rate 65 Respiratory Rate 18 Blood Pressure 108/68 Pulse Oximetry 98 Oxygen Delivery Intake/Output Intake/Output: Intake & Output 05/05/22 05/06/22 05/07/22 05/08/22 23:59 23:59 23:59 23:59 Intake Total 3110 4034 1130 Output Total 675 200 Balance 2435 3834 1130 Meds/Results Medications: Active Medications Generic Name Dose Route Start Last Admin Trade Name Freq PRN Reason Stop Dose Admin Hydrocodone Bitart/Acetaminophen 1 tab 05/06/22 13:25 05/07/22 03:41 Hydrocodone/Acetaminophen (*Crx) 5-325 Mg Tablet PO 1 tab Q4H PRN Administration Pain Rated 4-6 Piperacillin/Tazobactam/Dextrose 3.375 gm in 50 mls @ 100 mls/hr 05/08/22 18:00 Zosyn 3.375 Gm/Ns 50 Ml IVPB Q6HR [facility] Methylprednisolone Sodium Succinate 40 mg 05/07/22 07:30 05/08/22 11:07 Methylprednisolone Sod Succ 40 Mg Vial IV PUSH 40 mg
[2022-05-08] MEDS: PIPERACILLN/TAZ 3.375GM/NS50ML 3.375 GM/50 ML BAG IVPB (17:03)
[2022-05-08 20:40] VITALS: PULSE 83; RESP 18; O2SAT 96
[2022-05-08 21:47] VITALS: BP 103/62; PULSE 83; RESP 18; TEMP 36.3; O2SAT 96
[2022-05-09] MEDS: PIPERACILLN/TAZ 3.375GM/NS50ML 3.375 GM/50 ML BAG IVPB ×2 (00:33→05:26)
[2022-05-09] MEDS: methylPREDNISolone SOD SUCC 40 MG VIAL IV PUSH ×2 (00:35→05:29)
[2022-05-09 06:00] VITALS: BP 108/63; PULSE 58; RESP 18; TEMP 36.2; O2SAT 95
--- NOTE | 2022-05-09 07:05 | WPDGIPROGNO ---
Progress Note: A&P Assessment and Plan (1) Exacerbation of Crohn's disease: Code(s): K50.90 - Crohn's disease, unspecified, without complications Status: Acute Assessment and Plan: although he felt better after his 1st injection with Stelara, he began having symptoms again last week just couple days prior to his 2nd dose and those symptoms have worsened over the past [address] scan in February did show areas of Crohn's disease with narrowing in the jejunum as well as terminal ileum. Now there is an abscess as well. Recurrent CT reading is: 1. Wall thickening and inflammation of cecum, terminal ileum, and sigmoid colon again seen with chronic fistulas between these areas, consistent with Crohn's disease. 2. Mild ileocolic lymphadenopathy, likely reactive. I told that this is not indicated failure of therapy but that he was probably starting to develop an abscess before this based on the phlegmon that was noted in February. Because he has fistulizing Crohn's disease, his current therapy we is appropriate. He will need to continue to follow-up closely with his curtain feller blindstitch. I am going to start him on intravenous steroids to help reduce inflammation. 05/08/2022 feels somewhat better today. He unfortunately only got clear liquids yesterday and therefore we are not sure how he will tolerate regular food. I will remind dietary that he is supposed to have full liquids. 05/09/2022 his stool specimen for calprotectin has been obtained. I told that we will forward it to his curtain feller blindstitch so that he will have it as a reference (2) Intra-abdominal abscess: Code(s): K65.1 - Peritoneal abscess Status: Acute Assessment and Plan: He has been started on piperacillin. I told that he would probably go home on antibiotics. I mentioned metronidazole and he recalls having been on that at some point in the past. I explained that he will PN intravenous antibiotics while he is here and then probably will go home on oral antibiotics for some period of time. White blood count has come down 10,200. calprotectin level has not yet been obtained. 05/09/2022 he I told him that he will go home on antibiotics, metronidazole and Cipro for 10 days. He was concerned about the abscess. I told her this is analogous to a person having diverticulitis and virtually always resolves with conservative treatment, antibiotics. White blood count is down. C-reactive protein, as expected was elevated I Advised him to follow-up with his curtain feller blindstitch couple of weeks. (3) Abdominal pain: Code(s): R10.9 - Unspecified abdominal pain Status: Acute Assessment and Plan: he had a little more pain when he tried taking clear liquids. He states that he is willing to try some full liquids although he does not do well with lactulose. He states he is not particularly hungry. He is not taking morphine because it seems to upset his stomach but he is trying to get by with oral medication, hydrocodone 05/08/2022 pain has improved. 05/09/2022 pain is virtually resolved. Plan Start clear liquid diet; try advancing to full liquids antibiotics for Crohn's abscess tract calprotectin level as a 'baseline' and as a parameter for his curtain feller blindstitch to follow. He has not had a stool since he arrived in feels that he might be getting constipated . I told I will give him some . MiraLax Will give him more MiraLax today. Hopefully we can advance his diet later today. Home when he is able to eat without pain or obstructive symptoms. his case was discussed with hospitalist Christi, if he tolerates breakfast he will be discharged this morning. Subjective Date/time seen: 05/09/22 07:05 Is feeling better each day. He has virtually no pain now. Denies fever. Slept well last night. He tolerated his low-fiber diet. I told that the plan is for him to be discharged this morning. He will be on antibiotics
[2022-05-09 07:11] LABS: Hematocrit 39.7 % (42.0-52.0); Hemoglobin 12.6 g/dL (14.0-18.0); Mean Corpuscular HGB Conc 31.7 g/dl (32-36); Mean Corpuscular Hemoglobin 26.7 pg (26-34); Mean Corpuscular Volume 84.1 fl (80-100); Mean Platelet Volume 11.2 fl (7.4-10.4); Platelet Count Result 299 k/mm3 (150-375); Red Blood Count 4.72 M/mm3 (4.6-6.20); Red Cell Distribution Width 13.9 % (11.5-14.5); White Blood Count 15.4 K/mm3 (4.5-10.0)
[2022-05-09 07:31] LABS: Anion Gap 5 mmol/L (8-16); Blood Urea Nitrogen 15 mg/dL (9-20); Calcium 8.7 mg/dL (8.4-10.2); Carbon Dioxide 30 mmol/L (22-30); Chloride 106 mmol/L (98-107); Estimated CRCL calculation 120 ml/min; Estimated Glomerular Filt Rate > 60; Glucose 140 mg/dL (65-110); Potassium 4.3 mmol/L (3.4-5.0); Sodium 141 mmol/L (137-145)
--- NOTE | 2022-05-09 11:20 | PM.DS ---
DS: Admitting Diagnosis Discharge Date 05/09/2022 Admitting Diagnosis Crohn's flare DS: Discharge Diagnosis Discharge Diagnosis (1) Exacerbation of Crohn's disease: Code(s): K50.90 - Crohn's disease, unspecified, without complications Status: Acute Assessment and Plan: patient presented with worsened abdominal pain ongoing for about 1 week. patient had recently been started on Stelara and symptom onset occurred 2-3 days before he was due for his 2nd treatment CT of the abdomen/ pelvis showed wall thickening and inflammation of the cecum, terminal ileum, and sigmoid colon with chronic fistulas between these areas consistent with Crohn's disease he was seen in consultation by Gastroenterology received IV Solu-Medrol during admission and IV antibiotics as described below. mild leukocytosis secondary to IV steroids noted diet was slowly advanced and he was able to tolerate a bland diet which he will continue supportive care provided. he will follow-up with his vulcanizer as an outpatient (2) Intra-abdominal abscess: Code(s): K65.1 - Peritoneal abscess Status: Acute Assessment and Plan: chronic fistulas noted on CT with fat stranding secondary to Crohn's disease received IV Zosyn during admission continue p.o. Cipro and Flagyl for 10 day course on discharge per GI recommendations (3) Hypokalemia: Code(s): E87.6 - Hypokalemia Status: Acute Assessment and Plan: resolved with supplementation DS: Summary Hospital Course Hospital Course: date of admission: 05/06/2022 date of discharge: 05/09/2022 Varghese Colin is a 36-year-old male with a history of Crohn's disease who presented to the emergency department on 05/06/2022 with complaints of abdominal pain worsening over the past several days. On presentation to the ED, his vital signs are stable, he was afebrile, with WBC 16.5, potassium 3.1, lactic 1.0, additional laboratory workup relatively unremarkable, and CT of the abdomen/ pelvis showed wall thickening and inflammation of the cecum, terminal ileum, and sigmoid colon with chronic fistulas consistent with Crohn's disease. He was admitted to the hospitalist service for further evaluation and management was seen in consultation by Gastroenterology. Please see above for further details. Patient had symptomatic improvement following IV steroids antibiotics. He was eventually able to tolerate a bland diet. He will continue with p.o. antibiotics as an outpatient follow-up with his vulcanizer. Patient was feeling back to his usual state of health and felt comfortable with plans for discharge home. Discussed worrisome signs and symptoms for which to return and he was educated on his medications. He was discharged in hemodynamically stable condition on 05/09/2022. Time Spent with Patient Time attestation: Total time spent providing and/or coordinating discharge services: 45 minutes Exam Narrative: General: thin, well-appearing 36-year-old male, sitting up in bed, comfortable, NARD Neuro: awake, alert and oriented x4, speech clear, no focal neuro deficits noted HEENMT: normocephalic, atraumatic, EOMI, sclerae anicteric, moist oral mucosa Respiratory: clear to auscultation bilaterally, nonlabored breathing Cardio: regular rate, regular rhythm with S1-S2 Abdomen: nondistended, normoactive bowel sounds, soft, slightly tender to palpation periumbilical region Extremities: no edema, erythema, or tenderness to palpation, DP pulses 2+ bilaterally Skin: no rashes or lesions, warm and dry Psych: appropriate mood and affect, judgment and insight intact DS: Data Data Completed and Pending Labs on day of discharge: Labs from last 24 hours 05/09/22 05/09/22 07:03 07:03 WBC 15.4 H RBC 4.72 Hgb 12.6 L Hct 39.7 L MCV 84.1 MCH 26.7 MCHC 31.7 L RDW 13.9 Plt Count 299 MPV 11.2 H Sodium 141 Potassium
[2022-05-16 19:11] LABS: Calprotectin, Stool 971 mcg/g
== END 2022-05-09 12:00 | disposition home or self-care (01) | DRG 245 ==
LOC: ANHED 06:29 → ANH3MEDSUR 07:39
PROVIDERS: Internal Medicine Gastroenterology; Nurse Practitioner; Admitting Provider Internal Medicine; Emergency Provider Emergency Medicine; PCP Family Medicine; Visit Provider Physician Assistant
DX: K50.814 Crohn's disease of both small and large intestine with abscess (principal); E87.6 Hypokalemia; K59.00 Constipation, unspecified; Z87.891 Personal history of nicotine dependence
CPT/HCPCS: 36415; 74177; 80048; 80053; 81001; 83605; 83690; 83735; 83993; 85025; 85027; 86140; 87040; 96361; 96365; 96375; 96376; 99285; A9270; J2270; J2405; J2543; J2920; J3480; J7030; J7040; Q9967

== ENCOUNTER 2023-01-08 12:48 | Outpatient (CLI) | payer OTHER, SELFPAY ==
--- NOTE | ~2023-01-08 | XR_ITS ---
EXAMINATION: XR chest 2V Exam Date/Time: 01/08/2023 13:05 [employer]ER[employer]ER HISTORY: [employer]/ NO CURRENT COMPLAINTS Comparison: 01/17/2022. RESULT: Lines, tubes, and devices: None. Lungs and pleura: Clear. Cardiomediastinal silhouette: Stable. Other: No acute osseous or upper abdominal finding. IMPRESSION: No acute cardiopulmonary process. Reviewed, dictated and finalized at location K. 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
== END 2023-01-08 12:49 | disposition home or self-care (01) ==
PROVIDERS: PCP Family Medicine
DX: Z79.899 Other long term (current) drug therapy (principal)
CPT/HCPCS: 71046